=== PATIENT | female | born 1975 | race Caucasian/White ===

== ENCOUNTER 2023-06-09 14:03 | Emergency (ER) | payer OTHER ==
[~2023-06-09] VITALS: Ht 167.6 cm; Wt 113.4 kg
== END 2023-06-09 18:30 | disposition left against medical advice (07) ==
LOC: ED 14:03
DX: M79.10 Myalgia, unspecified site (principal); R06.02 Shortness of breath; R09.81 Nasal congestion; Z88.2 Allergy status to sulfonamides; Z91.018 Allergy to other foods; Z53.21 Procedure and treatment not carried out due to patient leaving prior to being seen by health care provider